=== PATIENT | male | born 1995 | race Caucasian/White ===

== ENCOUNTER 2019-07-29 22:26 | Emergency (ER) | payer OTHER ==
[~2019-07-29] VITALS: Ht 167.6 cm; Wt 65.8 kg
--- NOTE | 2019-07-29 22:52 | NUR ---
DR. ARREDONDO AT BEDSIDE FOR MSE.
[2019-07-29 23:14] VITALS: BP 102/39
--- NOTE | 2019-07-29 23:14 | NUR ---
Patient discharged to home in stable conditon. Written and verbal after care instructions given. Patient verbalizes understanding of instructions. PATIENT LEFT WITH STABLE GAIT. WOUND DRESSED WITH 4X4 GAUZE PER MD ORDER.
[2019-07-29] MEDS ORDERED: LIDOCAINE HCL 2% 20 ML VIAL TP ONE (23:15)
== END 2019-07-29 23:15 | disposition home or self-care (01) ==
LOC: ER 22:33
DX: L02.01 Cutaneous abscess of face (principal); F17.200 Nicotine dependence, unspecified, uncomplicated; F11.10 Opioid abuse, uncomplicated
CPT/HCPCS: A4663